=== PATIENT | female | born 1935 | race Caucasian/White ===

== ENCOUNTER 2017-11-09 11:17 | Inpatient (IN) | payer SELFPAY ==
[~2017-11-09] VITALS: Ht 149.9 cm; Wt 51.3 kg
[2017-11-09] MEDS ORDERED: IBUPROFEN 600MG TABLET PO STA (13:14)
[2017-11-09] MEDS ORDERED: ASPIRIN 81MG TABLET PO ONE (13:15)
[2017-11-09 14:15] LABS: BASOPHILS % 0.6 % (0.0-2.0); EOSINOPHILS % 0.2 % (0.0-5.0); HEMATOCRIT. 38.4 % (36.0-48.0); HEMOGLOBIN. 12.9 g/dL (12.0-16.0); LYMPHOCYTES % 8.5 % (20.0-50.0); MEAN CORPUSCULAR HEMOGLOBIN 31.2 pg (28.0-32.0); MEAN CORPUSCULAR VOLUME 92.8 fL (81.0-99.0); MEAN PLATELET VOLUME 10.7 fl (7.4-10.4); MONOCYTES % 6.6 % (2.0-8.0); NEUTROPHILS % 84.1 % (40.0-76.0); PLATELET 234 x1000/uL (130-400); RED BLOOD CELL COUNT 4.14 mill/uL (4.2-5.4); RED CELL DISTRIBUTION WIDTH 12.9 % (11.6-14.6)
[2017-11-09 14:36] LABS: CHLORIDE 97 mEq/L (98-107); TROPONIN I 0.13 ng/mL (0.00-0.04)
[2017-11-09 15:25] LABS: PARTIAL THROMBOPLASTIN TIME 25.5 sec (23.4-31.0); PROTHROMBIN TIME 10.7 sec (9.4-11.6)
[2017-11-09] MEDS ORDERED: IPRATROPIUM/ALBUTEROL 0.5-3(2.5)MG/3ML NEB INH PRN (17:00)
[2017-11-09] MEDS ORDERED: NA PHOS,M-B/NA PHOS,DI-BA ENEMA 118ML PR PRN (17:00)
[2017-11-09] MEDS ORDERED: ACETAMINOPHEN 325MG TABLET PO PRN (17:00)
[2017-11-09] MEDS ORDERED: DIPHENHYDRAMINE 50MG/ML VIAL IV PRN (17:00)
[2017-11-09] MEDS ORDERED: HYDROMORPHONE HCL/PF 2MG/ML CPJ IV PRN (17:00)
[2017-11-09] MEDS ORDERED: GUAIFENESIN 200MG/10ML SUGAR FREE UDC PO PRN (17:00)
[2017-11-09] MEDS ORDERED: DOCUSATE SODIUM 100MG CAPSULE PO PRN (17:00)
[2017-11-09] MEDS ORDERED: LORAZEPAM 0.5MG TABLET PO PRN (17:00)
[2017-11-09] MEDS ORDERED: HYDROCODONE/ACETAMINOPHEN 5/325MG TABLET PO PRN (17:00)
[2017-11-09] MEDS ORDERED: MAGNESIUM/ALUMINUM HYDROXIDE/SIMETHICONE 30ML UDC PO PRN (17:00)
[2017-11-09] MEDS ORDERED: ONDANSETRON HCL 4MG/2ML VIAL IV PRN (17:00)
[2017-11-09] MEDS ORDERED: CLONIDINE 0.1MG TABLET PO PRN (17:00)
[2017-11-09 17:26] LABS: CHLORIDE 99 mEq/L (98-107)
[2017-11-09 23:34] VITALS: BP 134/61
[2017-11-10] MEDS ORDERED: LEVOFLOXACIN 500MG PREMIX 100 ML IV NR (02:00)
[2017-11-10] MEDS ORDERED: CAND1TAB2 PO (03:09)
[2017-11-10] MEDS ORDERED: PARO-41 PO (03:09)
[2017-11-10] MEDS ORDERED: SIMV40TA5 PO (03:09)
[2017-11-10 07:56] LABS: BASOPHILS % 1.4 % (0.0-2.0); EOSINOPHILS % 2.1 % (0.0-5.0); HEMATOCRIT. 34.2 % (36.0-48.0); LYMPHOCYTES % 19.4 % (20.0-50.0); MEAN CORPUSCULAR HEMOGLOBIN 32.3 pg (28.0-32.0); MEAN CORPUSCULAR VOLUME 92.3 fL (81.0-99.0); MEAN PLATELET VOLUME 10.7 fl (7.4-10.4); MONOCYTES % 10.2 % (2.0-8.0); NEUTROPHILS % 66.9 % (40.0-76.0); PLATELET 193 x1000/uL (130-400)
[2017-11-10 08:00] VITALS: BP 132/59
[2017-11-10] MEDS ORDERED: PNEUMOCOCCAL 23-VAL P-SAC VAC 0.5 ML IM ONE (08:00)
[2017-11-10] MEDS: ASPIRIN 81MG EC TABLET PO SCH (08:32)
[2017-11-10] MEDS: ENOXAPARIN 40MG/0.4ML SYR SUBCUT SCH (08:32)
[2017-11-10] MEDS: PAROXETINE HCL 20MG TABLET PO SCH (08:32)
[2017-11-10 08:51] LABS: CHLORIDE 101 mEq/L (98-107); TROPONIN I 0.12 ng/mL (0.00-0.04)
[2017-11-10 09:31] LABS: HDL CHOLESTEROL 49 mg/dL (40-59); LDL CHOLESTEROL 82 mg/dL (5-100)
[2017-11-10 12:00] VITALS: BP 128/65
[2017-11-10 16:00] VITALS: BP 119/66
[2017-11-10] MEDS ORDERED: MEDICATION NOT ON FORMULARY EA (Simvastatin 1 TAB) PO SCH (17:00)
[2017-11-10 20:00] VITALS: BP 122/58
[2017-11-10] MEDS ORDERED: ATORVASTATIN CALCIUM 20MG TABLET PO SCH (21:00)
[2017-11-11] VITALS: BP 135/66
[2017-11-11] MEDS ORDERED: LEVOFLOXACIN 250MG PREMIX 50 ML IV SCH (02:00)
[2017-11-11 04:00] VITALS: BP 116/63
[2017-11-11] MEDS ORDERED: REGADENOSON 0.4 MG/5 ML IV NR (06:00)
[2017-11-11 07:58] LABS: BASOPHILS % 1.8 % (0.0-2.0); EOSINOPHILS % 3.2 % (0.0-5.0); HEMATOCRIT. 34.2 % (36.0-48.0); HEMOGLOBIN. 11.8 g/dL (12.0-16.0); LYMPHOCYTES % 25.4 % (20.0-50.0); MEAN CORPUSCULAR VOLUME 92.6 fL (81.0-99.0); MEAN PLATELET VOLUME 10.7 fl (7.4-10.4); MONOCYTES % 10.5 % (2.0-8.0); NEUTROPHILS % 59.1 % (40.0-76.0); PLATELET 191 x1000/uL (130-400)
[2017-11-11 08:53] LABS: CHLORIDE 101 mEq/L (98-107)
[2017-11-11] MEDS ORDERED: PNEUMOCOCCAL 23-VAL P-SAC VAC 0.5 ML IM ONE (09:00)
[2017-11-11] MEDS: PAROXETINE HCL 20MG TABLET PO SCH (09:13)
[2017-11-11] MEDS: ASPIRIN 81MG EC TABLET PO SCH (09:13)
[2017-11-11] MEDS: ENOXAPARIN 40MG/0.4ML SYR SUBCUT SCH (09:13)
[2017-11-11 09:47] VITALS: BP 132/58
== END 2017-11-11 10:30 | disposition home or self-care (01) | DRG 243 ==
LOC: ER 11:17 → 5WST 15:15 → ENRESERV 21:39 → EDBEDREQ 22:51
PROVIDERS: ADMIT Internal Medicine; ATTEND Internal Medicine
DX: K21.9 Gastro-esophageal reflux disease without esophagitis (principal); E46 Unspecified protein-calorie malnutrition; R65.10 Systemic inflammatory response syndrome (SIRS) of non-infectious origin without acute organ dysfunction; I10 Essential (primary) hypertension; E78.5 Hyperlipidemia, unspecified; E78.00 Pure hypercholesterolemia, unspecified; H54.7 Unspecified visual loss; I25.10 Atherosclerotic heart disease of native coronary artery without angina pectoris; Z79.899 Other long term (current) drug therapy; Z68.32 Body mass index [BMI] 32.0-32.9, adult
CPT/HCPCS: 36415; 71045; 73030; 80048; 80053; 80061; 83880; 84439; 84443; 84484; 85025; 85610; 85730; 90732; 93005; 99285; J1650; J1956; J7050